=== PATIENT | male | born 1985 | race Caucasian/White ===

== ENCOUNTER 2021-02-06 07:19 | Emergency (ER) | payer OTHER ==
[~2021-02-06] VITALS: Ht 182 cm; Wt 97.0 kg
[~2021-02-06 07:19] MED LIST: BACL10TA PO; CYCL-97 PO; ETD400T PO; HYDR-3720 PO; NAPR550T PO; PENI250T4 PO
--- NOTE | 2021-02-06 07:42 | ED Lower Extremity ---
General Chief Complaint: Lower Extremity Stated Complaint: LEFT ANKLE INJURY Nursing Triage Note: STATES HE TWISTED HIS ANKLE WHILE AT WORK YESTERDAY. Source: patient Exam Limitations: no limitations History of Present Illness Date Seen by Provider: Feb 06, 2021 Time Seen by Provider: 07:39 Initial Comments Patient is a 35-year-old male who presents to the emergency room with a chief complaint of left lateral ankle pain. He was working yesterday, stepped off of a ledge and twisted his left ankle. He states he was immediately able to bear weight for us short amount of time afterwards. As the night is progressed he is developed more swelling. He has not taken anything for the pain. He states he cannot ambulate on the left ankle secondary to the pain. No prior history of injuries to the left ankle. Denies numbness weakness or tingling in his toes. Denies knee pain. No other complaints of injury. He is a smoker. No recent illnesses. All other review of systems reviewed and negative except as stated Onset: yesterday Severity: severe Pain/Injury Location: left ankle Method of Injury: twisted Modifying Factors: Improves With Immobilization; Worse With Movement Allergies and Home Medications Allergies Uncoded Allergies: MINT (Allergy, Mild, HIVES, 08/01/10) Patient Home Medication List Home Medication List Reviewed: Yes Discontinued Medications Hydrocodone Bit/Acetaminophen (Hydrocodone-Apap 10-325 Tablet) 1 Each Tablet, 0.5-1 EACH PO Q 4 - 6 HRS PRN Discontinued Reason: No Longer Taking Prescribed by: JANET LAIRD on 09/19/12727 Last Action: Discontinued Penicillin V Potassium (Penicillin V Potassium) 250 Mg Tablet, 500 MG PO QID Discontinued Reason: No Longer Taking Prescribed by: JANET LAIRD on 09/19/12727 Last Action: Discontinued Review of Systems Constitutional: see HPI EENTM: no symptoms reported Respiratory: no symptoms reported Cardiovascular: no symptoms reported Gastrointestinal: no symptoms reported Musculoskeletal: joint pain (left ankle) Skin: no symptoms reported Psychiatric/Neurological: No Symptoms Reported All Other Systems Reviewed Negative Unless Noted: Yes Past Nzsqbkk-Wcbtub-Wngczk Hx Patient Social History Smoking Status: Current Everyday Smoker Substance use?: No Alcohol Use?: No Immunizations Up To Date Tetanus Booster (TDap): Less than 5yrs Physical Exam Vital Signs Vital Signs - First Documented 02/06/21 07:22 Temp 36.3 Pulse 85 Resp 16 B/P (MAP) 123/89 (100) Pulse Ox 97 O2 Delivery Room Air Capillary Refill : Less Than 3 Seconds Height, Weight, BMI Height: 6'0" Weight: 220lbs. oz. 99.680661ri; 29.00 BMI Method:Stated General Appearance: WD/WN, no apparent distress Cardiovascular: regular rate, rhythm Respiratory: lungs clear, normal breath sounds, no respiratory distress, no accessory muscle use Hips: bilateral hip normal range of motion, bilateral hip no evidence of injury Legs: bilateral leg non-tender, bilateral leg normal inspection, bilateral leg normal range of motion, bilateral leg no evidence of injury Knees: bilateral knee non-tender, bilateral knee normal inspection, bilateral knee normal range of motion, bilateral knee no evidence of injury Ankles: left ankle bone tenderness, left ankle limited range of motion, left ankle pain, left ankle soft tissue tenderness, left ankle swelling Feet: bilateral foot non-tender, bilateral foot normal inspection, bilateral foot normal range of motion, bilateral foot no evidence of injury Neurologic/Tendon: normal sensation, normal motor functions Neurologic/Psychiatric: no motor/sensory deficits, alert, normal mood/affect, oriented x 3 Skin: normal color, warm/dry Progress/Results/Core Measures Results/Orders My Orders Orders - MAGO JOHNSON MD Ankle, Left, 3 Views (02/06/21 07:38) Ibuprofen Tablet (Motrin Tablet) (02/06/21 07:45) Medications Given in ED Vital Signs/I&O 02/06/21 02/06/21 07:22 08:39 Temp 36.3 36.3 Pulse 85 85 Resp 16 16 B/P (MAP) 123/89 (100) 123/89 Pulse Ox 97 97 O2 Delivery Room Air Room Air Blood Pressure Mean: 100 Diagnostic Imaging Diagonstic Imaging: Xray Comments 3 views of the left ankle, reviewed and x-ray interpreted by me, negative for fracture or dislocation [facility], [place] NAME: NOHELIA SKY MED REC#: [id number] PT STATUS: REG ER : 1985 PHYSICIAN: MAGO JOHNSON MD ADMIT DATE: 02/06/21/ER Signed Date of Exam:02/06/21 ANKLE, LEFT, 3 VIEWS CLINICAL HISTORY: Left ankle pain. Twisting injury. COMPARISON: None. TECHNIQUE: 3 views of the left ankle. FINDINGS: There is no acute fracture or dislocation of the left ankle. Alignment is anatomic. The imaged joint spaces are preserved. Soft tissue edema is seen overlying the lateral malleolus. IMPRESSION: 1. No acute fracture or dislocation is seen in the left ankle. 2. Soft tissue edema overlying the lateral malleolus. Findings may suggest soft tissue injury. Dictated by: Dictated on workstation # [id number] Dict: 02/06/21811 Trans: 02/06/21819 [facility] [id number] Interpreted by: HEATHER HUMPHRIES DO Electronically signed by: HEATHER HUMPHRIES DO 02/06/21819 Departure Impression Primary Impression: Left ankle sprain Qualified Codes: S93.402A - Sprain of unspecified ligament of left ankle, initial encounter Disposition: HOME, SELF-CARE Condition: Stable Departure-Patient Inst. Decision time for Depature: 08:05 Referrals: [facility],LOCAL PHYSICIAN (PCP) Primary Care Physician Patient Instructions: Ankle Sprain ED Add. Discharge Instructions: Continue to use ice packs to the left ankle 20 minutes at a time 3-4 times daily for the next 24 hours. Elevate to reduce swelling. Crutch walking with nonweightbearing for 24 hours. Then you can use the crutches and toe-touch weight-bear on the ankle as tolerated, slowly increasing your weightbearing as tolerated over the next several days. Mtww-uwe-kdopixi ibuprofen, 600 mg which is 3 tablets every 6 hours with food as needed for pain. Follow-up with [facility]. You can also follow-up with a primary care provider. Return to the emergency department for any new, concerning or emergent complaint MAGO Peterson MD Feb 06, 2021 07:41
[2021-02-06] MEDS ORDERED: IBUPROFEN 600 MG (MOTRIN) TAB PO ONE (07:45)
--- NOTE | 2021-02-06 08:18 | Diagnostic Imaging Report ---
CLINICAL HISTORY: Left ankle pain. Twisting injury. COMPARISON: None. TECHNIQUE: 3 views of the left ankle. FINDINGS: There is no acute fracture or dislocation of the left ankle. Alignment is anatomic. The imaged joint spaces are preserved. Soft tissue edema is seen overlying the lateral malleolus. IMPRESSION: 1. No acute fracture or dislocation is seen in the left ankle. 2. Soft tissue edema overlying the lateral malleolus. Findings may suggest soft tissue injury. Dictated by: Dictated on workstation # [id number]
[2021-02-06 08:39] VITALS: BP 123/89
== END 2021-02-06 08:38 | disposition home or self-care (01) ==
LOC: EDUNIT# 07:19 → ER 07:22
DX: S93.402A Sprain of unspecified ligament of left ankle, initial encounter (principal); F17.290 Nicotine dependence, other tobacco product, uncomplicated; X50.1XXA Overexertion from prolonged static or awkward postures, initial encounter
CPT/HCPCS: 73610